=== PATIENT | male | born 1965 | race Hispanic/Latino ===

== ENCOUNTER 2022-04-03 08:50 | Day surgery (SDC) | payer BC ==
[2022-04-03 09:36] LABS: Potassium 4.5 mmol/L (3.5-5.1)
[2022-04-03] MEDS ORDERED: Ringers Lactate 1,000 ML IV ONE ×2 (09:43→11:36)
[2022-04-03 09:45] LABS: Absolute Lymphocytes (CBC) 1.4 K/uL (0.7-4.9); Hematocrit 46.5 % (39.6-49.0); Lymphocytes % 20.9 % (15.3-44.8); MCV 88.1 fL (80-100); RBC Red Blood Cell Count 5.28 M/uL (4.33-5.43)
[2022-04-03] MEDS ORDERED: MIDAZOLAM HCL 2 MG/2 ML INJ ONE (09:55)
[2022-04-03] MEDS ORDERED: FENTANYL CITR 100 MCG/2 ML ONE (09:55)
[2022-04-03] MEDS ORDERED: propofoL 200 MG/20 ML VIAL IV ONE (09:55)
[2022-04-03] MEDS ORDERED: dexAMETHasone 10 MG/ML VIAL ONE (09:55)
[2022-04-03] MEDS ORDERED: ROCURONIUM 50 MG/5 ML VIAL IV ONE (09:55)
[2022-04-03] MEDS ORDERED: ONDANSETRON 4 MG/2 ML VIAL ONE (09:56)
[2022-04-03] MEDS ORDERED: LIDOCAINE 2% MPF 5 ML VIAL ONE (09:56)
[2022-04-03] MEDS ORDERED: CEFAZOLIN SODIUM 1 GM/VIAL ONE (09:56)
--- NOTE | 2022-04-03 09:57 | RAD REPORT ---
EXAM DESCRIPTION: RAD - Chest Pa And Lat (2 Views) - 04/03/2022 9:34 am CLINICAL HISTORY: PREOP Chest pain. COMPARISON: No comparisons TECHNIQUE: PA and lateral views of the chest were obtained. FINDINGS: The lungs are hyperexpanded compatible with COPD. The heart is upper limit of normal in si ze. No fracture or aggressive bony process. IMPRESSION: COPD without acute process identified. The USPSTF recommends annual screening for lung cancer with low-dose CT (LDCT) in adults aged 50 to 80 years who have a 20 pack-year smoking history and currently smoke or have quit within the past 15 years.
[2022-04-03] MEDS ORDERED: KETOROLAC 30 MG/ML INJ ONE (10:41)
--- NOTE | 2022-04-03 11:06 | P.BOP ---
Preoperative diagnosis: incarcerated umbilical hernia, cellulitis with necrotic periumbical skin Postoperative diagnosis: same Primary procedure: Incarcerated umbilical hernia open repair Wrapper Hands Sprayer: ANABEL HAILE (Ben) Estimated blood loss: <10cc Specimen: sac Findings: incarcerated omentum Anesthesia: General Complications: None Transferred to: Recovery Room Condition: Good
--- NOTE | 2022-04-03 12:11 | OP ---
Date of Procedure: 04/03/2022 Surgeon: Robert Crawford MD Collar Band Creaser: AKIN Wolf. Preoperative Diagnoses: Incarcerated umbilical hernia with cellulitis and necrotic area of the periu mbilical skin. Postoperative Diagnoses: Incarcerated umbilical hernia with cellulitis and necrotic area of the temo umbilical skin. Procedure: Open repair of incarcerated umbilical hernia. Estimated Blood Loss: Less than 10 mL. Specimen: Hernia sac. Findings: Incarcerated omentum. The patient also has due to the pressure of this hernia being incar cerated, some necrosis of the skin with cellulitis that was treated already for few days over the wee kend. Anesthesia: General plus local. Indication: This is the case of a 56-year-old patient, who comes to us with incarcerated umbilical h ernia. We already have an open wound on that region due to pressure from the inside and cellulitis p resent, was treated with antibiotics for few days. The hernia needs to be repaired with benefits, al ternatives, and risks including, but not limited to infection, bleeding, damage to adjacent structure s, anesthesia complication, recurrence, MS and even . He also understands this may not relieve any symptoms. He might need more than one surgical intervention. He understood, signed a consent. He understands the importance of losing weight and no heavy lifting. Procedure In Detail: The patient was brought to the operating room, placed in supine position. Anes thesia was done without complication. Abdominal area was prepped and draped in the usual sterile fas hion. We cleaned the area profusely including the wound itself. We trying to make the new incision away from this necrotic skin already, so we made an incision a little bit. The lower incision was ca rried down until we find the hernia, removed the umbilical skin from it, opened the hernia sac, notic ed incarcerated omentum that cannot be reduced, so I proceeded to suture ligate the omentum and then removed the part that it was incarcerated and allowed omentum to be reduced after fully inspecting to make sure there was no bleeding. Hernia sac was removed. Fascial edges were cleaned and then we pr oceeded to close the area with #1 PDS multiple times in [id number] fashion and we closed the fas rom. The area was profusely irrigated once again. A 3-0 chromic was used to close the subcutaneous tissue and skin with staple. We replaced triple antibiotics of the skin that is on top which is suff ering from this problem and hopefully that delineate and improved and looks like it is cellulitis, ea ch getting under control. The patient tolerated the procedure well. The patient was sent to recover y in stable condition. LILA/JOHN Voice ID: [id number] Report ID: [id number]
--- NOTE | 2022-04-03 12:11 | DS ---
Diagnoses: Incarcerated umbilical hernia with cellulitis and necrotic periumbilical skin. Procedure: Open repair of incarcerated umbilical hernia. Disposition: Home. Activity: As tolerated. No heavy lifting. Plan: Follow up in my office in 1 week. Call for appointment at [phone]. The patient is already o n antibiotics, so we asked him to continue until finished. Avoid constipation, use stool softeners, and keep the area dry until 48 hours, then may remove outer dressings. Clean the area with antibacte rial soap and water. Apply triple antibiotics to the staple line and the skin in question and then r eplace with dry gauze daily. LILA/JOHN Voice ID: [id number] Report ID: [id number]
[2022-04-03 13:52] VITALS: BP 154/86; TEMP 96.2; O2SAT 98
--- NOTE | 2022-04-03 18:36 | EKG ---
Test Date: 2022-04-03 Test Time: 09:04:46 Manager Advanced: KOLTON MEASUREMENT RESULTS: Intervals: Rate: 69 VA: 168 QRSD: 98 QT: 392 QTc: 420 [place]: P: 47 VA: 168 QRS: -9 T: 28 INTERPRETIVE STATEMENTS: Normal sinus rhythm Normal ECG No previous ECG available for comparison Electronically Signed On 04-03-22 18:35:16 CDT by Lito John
== END 2022-04-03 12:45 | disposition home or self-care (01) ==
LOC: OR 08:50
PROVIDERS: ATTEND Surgery
PROC: 0WQF0ZZ Repair Abdominal Wall, Open Approach (ICD-10-PCS; principal; 2022-04-03 11:30)
DX: K42.0 Umbilical hernia with obstruction, without gangrene (principal); L03.316 Cellulitis of umbilicus; I96 Gangrene, not elsewhere classified
CPT/HCPCS: 93005; 85025; 80048; 36415; 88302; 71046; 49587; J2704; J2001; J2250; J3010; J1100; J7120 ×2; J2405; J0690